=== PATIENT | female | born 2005 | race Hispanic/Latino ===

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

== ENCOUNTER 2024-10-30 00:11 | Emergency (ER) | payer OTHER ==
[~2024-10-30] VITALS: Ht 162.6 cm; Wt 54.9 kg
--- NOTE | 2024-10-30 00:30 | NUR ---
INTRUCTED PT TO PROVIDE US URINE SAMPLE, UA CUP GIVEN
--- NOTE | 2024-10-30 00:33 | NUR ---
SLING APPLIED TO LEFT ARM. PT MOVED TO ROOM 9.
[2024-10-30] MEDS: HYDROcodone/APAP 5/325 1 TAB TABLET PO ONE (00:43)
--- NOTE | 2024-10-30 00:45 | NUR ---
PENDING XRAY TO BE DONE BUT TECH IS UNAVAILABLE AT THIS TIME DUE TO ONGOING CODE
--- NOTE | 2024-10-30 01:05 | ERN ---
ED Note History of Present Illness Stated Complaint: C/O PAIN TO LEFT SHOULDER AFTER FALL Chief Complaint: Shoulder Injury/Pain Time Seen by MD: 00:33 Time Seen by Midlevel: 00:33 Dictation: The patient is a 19-year-old female with no significant past medical history who presents to the emergency department with complaints of left shoulder pain onset 30 minutes ago after she fell off somebody shoulder. Patient denies any head trauma, denies any LOC, denies any back pain, neck pain, chest pain or abdominal pain. Patient denies any other injuries. Denies any paresthesia Allergies: Coded Allergies: No Known Allergies (Unverified Allergy, Unknown, 10/30/24) Uncoded Allergies: CRAWFISH (Adverse Reaction, Severe, 05/31/23) Home Meds Active Scripts Meloxicam (Meloxicam) 15 Mg Tablet, 1 TAB PO DAILY for 10 Days, #30 TAB 0 Refills Prov:OSMANY SHULTZ 10/30/24 Famotidine (Pepcid) 20 Mg Tablet, 20 MG PO DAILY, #30 TAB Prov:BLANK SZYMANSKI MD 05/31/23 Prednisone (Prednisone) 20 Mg Tablet, 1 TAB PO AD for 6 Days, #14 TAB 0 Refills TAKE 3 TAB BY MOUTH daily X3 DAYS, THEN TAKE 2 TAB BY MOUTH daily X2 DAYS, THEN TAKE 1 TAB BY MOUTH ONCE A DAY X1 DAY. Prov:BLANK SZYMANSKI MD 05/31/23 Diphenhydramine HCl (Benadryl) 50 Mg Cap, 50 MG PO QID PRN for itching for 10 Days, #30 CAP 0 Refills Prov:BLANK SZYMANSKI MD 05/31/23 Past Medical History Past Medical History: No Pertinent History Surgical History: None Social History: Negative, Lives with family LMP: Oct 30, 2024 RN Note Reviewed/Agreed w/PFSH: Yes Review of System Dictation Constitutional: Negative for fever,chills, and weight loss Eyes: Negative for injury, pain,redness, and discharge ENT: Negative for injury,pain or swelling Cardiovascular: Negative for chest pain, palpitations, and edema Respiratory: Negative for shortness of breath, cough, and wheezing, Abdomen/GI: Negative for abdominal pain, nausea, vomiting, diarrhea, and constipation Back: Negative for injury and pain : Negative for injury, bleeding and discharge MS/Extremity: Positive for left shoulder pain Skin: Negative for rash, and discoloration Neuro: Negative for headache, weakness, numbness, tingling, and seizure Psych: Negative for suicide ideation, homicidal ideation, and hallucinations Initial Vital Sign VS Vital Signs Date Time Temp Pulse Resp B/P (MAP) Pulse Ox O2 Delivery O2 Flow Rate FiO2 10/30/24 00:13 98.1 74 20 130/84 98 Room Air 10/30/24 00:30 0 21 Physical Exam Dictation Vital Signs reviewed General Appearance: Alert, oriented x 3, no acute distress, well developed, nourished. Head and Face: non-traumatic. Eyes: PERRL, pink conjunctivas, eyelid no trauma, anterior chamber with arcus senilis. Ears: Pinnas intact and no signs of trauma or erythema ear canals clear and no discharge TM no erythema Nose: No discharge, no bleeding. Oropharynx: Mouth normal, tongue pink. pharynx clear,no erythema, tonsils no exudates, no abscesses noted, mucous membrane moist Neck: Supple, non-tender, no thyromegaly, no masses, no JVD, no bruits Breast:Deferred Chest:No tenderness, no crepitus, no paradoxical movement, no retractions Lungs:Clear, well-ventilated, symmetric, no rales, no wheezing, no rhonchi, no stridor, good breath sounds bilaterally Heart: Regular rate, regular rhythm, no murmur, no gallops Vascular: no peripheral edema, radial pulse 3 +, cap refill less than 2 seconds Abdomen: Soft, positive bowel sounds, nondistended, no guarding, nontender, no rebound, no masses no hepatomegaly, no splenomegaly, no Paul's sign, no hernias. Rectal: Deferred Genital: Deferred Neurological: Normal speech, motor function intact, sensory function intact Musculoskeletal: Neck nontender, full range of motion, back nontender, full range of motion, Extremities: nontender, tenderness to left shoulder, decreased range of motion due to pain, no open wounds Skin: Color pink, dry, no turgor, no rash, no lacerations, no abrasions, no contusions. Lymphatic: Deferred Results (Laboratory/Radiology) Laboratory/Radiology Laboratory Tests Test 10/30/24 01:49 Urine HCG, Qualitative NEGATIVE (NEGATIVE) Labs Reviewed?: Yes ED Course ED Course Orders Procedure Category Date Status Time ,Urine Test LAB 10/30/24 Complete 00:37 Hydrocodone/Apap PHA 10/30/24 Complete 5/325 ([place] 5/325mg) 01:00 Clavicle Left RAD 10/30/24 Taken 01:59 Shoulder Ltd 1vw Lt RAD 10/30/24 Taken 00:26 Current Medications Medications (Trade) Dose Ordered Sig/Cruz Route PRN Reason Start Time Stop Time Status Last Admin Dose Admin Acetaminophen/ Hydrocodone Bitart (NORco 5/325MG) 1 tab ONCE ONCE PO 10/30/24 01:00 10/30/24 01:01 DC 10/30/24 00:43 Vital Signs Date Time Temp Pulse Resp B/P (MAP) Pulse Ox O2 Delivery O2 Flow Rate FiO2 10/30/24 00:30 98.8 88 18 126/66 98 Room Air* 0 21 10/30/24 00:13 98.1 74 20 130/84 98 Room Air Medical Decision Making MDM The patient is a 19-year-old female with no significant past medical history who presents to the emergency department with complaints of left shoulder pain onset 30 minutes ago after she fell off somebody shoulder. Patient denies any head trauma, denies any LOC, denies any back pain, neck pain, chest pain or abdominal pain. Patient denies any other injuries. Denies any paresthesia X-ray showed fractured clavicle. On physical exam patient is in no acute distress, nontoxic appearance, neurovascularly intact, no tenting. Patient placed on a clavicle strap. Patient will be discharged to follow up with ortho. Differential diagnosis: Shoulder dislocation, shoulder strain, clavicle fracture Need for hospitalization: Patient does not meet criteria for hospitalization. There are no social concerns with this patient. DX & DISP Disposition: Discharge Departure Impression: Primary Impression: Closed left clavicular fracture Condition: Stable Scripts Meloxicam (Meloxicam) 15 Mg Tablet 1 TAB PO DAILY for 10 Days, #30 TAB 0 Refills Prov: OSMANY SHULTZ 10/30/24 Additional Instructions: Your x-ray showed that you fractured your collarbone. Take your medications as prescribed. Your prescription is a nonsteroidal anti-inflammatory drug. Do not take any additional nonsteroidal anti-inflammatory drugs like ibuprofen with your medication. Please follow up with the ortho. Avoid any physical activity that could further caused further injury. Avoid any sports until cleared by your doctor. If anything worsens please return to ER. FOLLOW-UP WITH PRIMARY CARE PROVIDER IN 1 TO 2 DAYS. TAKE MEDICATIONS DIRECTED HERE IN THE EMERGENCY ROOM. OKAY TO CONTINUE HOME MEDICATIONS UNLESS OTHERWISE DISCUSSED DURING YOUR VISIT IN THE EMERGENCY ROOM TODAY. RETURN TO YOUR NEAREST EMERGENCY ROOM IF SYMPTOMS WORSEN OR IF THERE IS NO IMPROVEMENT. CALL 911 IF YOU NEED IMMEDIATE ASSISTANCE. TAKE TYLENOL [id number] NEEDED AND IF NO CONTRAINDICATIONS ARE PRESENT. INCREASE ORAL HYDRATION. A WOUND CULTURE OR URINE CULTURE WAS ORDERED HERE IN THE EMERGENCY ROOM DEPARTMENT PLEASE FOLLOW-UP WITH PRIMARY CARE PROVIDER AND ADVISE THEM TO GET REPEAT PORTS FROM OUR FACILITY. IF YOU HAD ANY TRU WRAP/SPLINTS THAT WERE APPLIED HERE, PLEASE DO NOT REMOVE THEM UNTIL YOU SEE YOUR PRIMARY CARE OR SPECIALTY. Referrals: ALISHA SAHU MD (PCP) BEVERLY GASCA MD Time of Disposition: 02:47 I have examined patient, & reviewed all documents, & agreed W/ the Diagnosis, and Plan OSMANY SHULTZP Oct 30, 2024 01:05
--- NOTE | 2024-10-30 02:40 | NUR ---
PLACED CLAVICULAR SPLINT
[2024-10-30] MEDS ORDERED: MELO-108 PO (02:48)
[2024-10-30 03:00] VITALS: BP 119/68; PULSE 75; RESP 18; TEMP 98.8; O2SAT 99
--- NOTE | 2024-10-30 03:01 | HMCIMG ---
EXAM: CR Left Clavicle, 2 views. CLINICAL HISTORY: Pain. COMPARISON: None provided. FINDINGS: Acute fracture of the left clavicle shaft with mild inferior tilt of the distal segment. Unremarkable joint spaces. The soft tissues are unremarkable. IMPRESSION: Acute fracture of the left clavicle shaft with mild inferior tilt of the distal segment. /[place]
--- NOTE | 2024-10-30 03:02 | HMCIMG ---
EXAM: CR Left Shoulder, 1 View. CLINICAL HISTORY: Pain. COMPARISON: None provided. FINDINGS: Acute fracture of the left clavicle shaft with mild inferior tilt of the distal segment. The remaining bones are within normal limits. Unremarkable joint spaces. The soft tissues are unremarkable. IMPRESSION: Acute fracture of the left clavicle shaft with mild inferior tilt of the distal segment. /[place]
== END 2024-10-30 03:03 | disposition home or self-care (01) ==
LOC: EDH 00:11
DX: S42.022A Displaced fracture of shaft of left clavicle, initial encounter for closed fracture (principal); Z79.1 Long term (current) use of non-steroidal anti-inflammatories (NSAID); W18.39XA Other fall on same level, initial encounter; Y93.89 Activity, other specified; Y92.89 Other specified places as the place of occurrence of the external cause; Y99.8 Other external cause status
CPT/HCPCS: 73000; 73020; 81025; 99284